=== PATIENT | male | born 2000 | race Caucasian/White ===

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

== ENCOUNTER 2022-02-04 18:14 | Emergency (ER) | payer OTHER, SELFPAY ==
[2022-02-04 18:20] VITALS: BP 124/85; PULSE 85; RESP 16; TEMP 37.2; O2SAT 99; BMI 23.6
[2022-02-04 18:52] LABS: UTC Influenza A Antigen Negative (Negative)
[2022-02-04 18:53] LABS: UTC Influenza B Antigen Negative (Negative)
[2022-02-04 19:00] LABS: Strep Scrn Group A (Rapid) Negative (Negative)
--- NOTE | 2022-02-04 19:10 | HMH.EDUTC ---
[facility] [place] Impression: Abdominal pain Qualifiers: Abdominal location: unspecified location Qualified Code(s): R10.9 - Unspecified abdominal pain Disposition: Still a Patient Condition on Discharge: Fair Referrals: Bhanu Matos MD [Primary Care Provider] - Time of Disposition: 19:54 Medical Decision Making - Medical Records Medical records reviewed: No: I reviewed the patient's medical records. - Herminio Inquiry Pt receiving controlled substance: No Vital Signs: 02/04/22 18:20 Temperature 98.9 F Temperature Source Oral Pulse Rate [Right] 85 Respiratory Rate 16 Blood Pressure [Right Arm] 124/85 Blood Pressure Mean [Right Arm] 98 Blood Pressure Source [Right Arm] Automatic Cuff Blood Pressure Position [Right Arm] Sitting 02 Sat by Pulse Oximetry 99 Oxygen Delivery Method Room Air - Lab Data Lab results reviewed: Yes: I reviewed the patient's lab results. Lab Results 02/04/22 18:40: Influenza Type A Ag Negative, Influenza Type B Ag Negative 02/04/22 18:41: Group A Strep Rapid Negative Orders (Tests/Meds): ORDERS Category Date Time Status Strep Screen Confirmation Stat Micro 02/04/22 18:41 Received Medical Decision Narrative: He was transferred to the ER due to his abdominal pain and right lower quadrant abdominal tenderness. [facility] [place] - General Stated complaint: vomiting, stomach pain, weakness Time Seen by Provider: 02/04/22 19:11 Mode of Arrival: Wheelchair Source of Information: Patient Limitations: No Limitations Description of Symptoms (Recalled from Triage Doc. by RN): pt advises this morning when he woke up he started vomiting and having some diarrhea, advises as the day went on he has gotten progressively worse and is having body aches and chills. - History of Present Illness Provider Complaint: He states that since around 0800 this am, he has had n/v. He is having right lower quadrant abdominal pain also. He still has his appendix. - Related Data Home Medications Medication Instructions Recorded Confirmed Ibuprofen [Ibuprofen 400mg 400 mg PO Q4HP PRN 12/08/18 12/08/18 Tablet] Previous Rx's Medication Instructions Recorded Ibuprofen [Motrin 600mg 600 mg PO Q8HP PRN #21 tab 12/08/18 Tablet] Minocycline HCl [Minocycline HCl 100 mg PO BID #20 tablet 12/08/18 100mg Tab*] Allergies Allergy/AdvReac Type Severity Reaction Status Date / Time amoxicillin [AMOXICILLIN] Allergy Unknown Verified 11/14/18 12:09 [facility] History - Hepatitis A Screen Attestation statement:: This patient has been screened for Hepatitis A risk factors. I have reviewed the patient's past medical history: Yes Medical History: Denies:: Cancer, Diabetes Mellitus Type 1, Diabetes Mellitus Type 2, MRSA Laterality Cases: Bilateral: Tonsillectomy Amputation: No Fractures: No - Social History Smoking Status: Never smoker Alcohol Intake: never Occupational Status: other Housing: house ROS Obtained: Yes All systems reviewed & no additional complaints - Constitutional Constitutional: Reports body ache, Reports chills, Reports fever(s), Reports poor appetite, Reports malaise - Eyes Eyes: Denies eye discharge - Gastrointestinal Gastrointestingal: Reports: as per HPI - Genitourinary Male Genitourinary: Denies difficulty urinating, Denies urinary frequency, Denies urinary hesitancy - Musculoskeletal Musculoskeletal: Denies back pain - Integumentary/Breasts Skin/Breast: Denies rash Physical Exam - General General appearance: alert, in no apparent distress - Head Head exam: atraumatic, normocephalic, normal inspection - Eye Eye exam: Present: normal appearance, PERRL, EOMI - ENT ENT exam: Present: normal exam, normal oropharynx, mucous membranes moist, TM's normal bilaterally, normal external ear exam - Neck Neck exam: Present: normal inspection, full ROM, trachea midline. Absent: meningismus, lymphadenopathy - Chest Chest
[2022-02-04 19:45] VITALS: BP 140/80; PULSE 100; RESP 18; TEMP 36.9; O2SAT 99; BMI 22.7
--- NOTE | 2022-02-04 20:02 | CT_ITS ---
PROCEDURE INFORMATION: Exam: CT Abdomen And Pelvis With Contrast Exam date and time: 02/04/2022 8:57 PM Age: 21 years old Clinical indication: Abdominal tenderness and vomiting; Additional info: Abd pain, rlq TECHNIQUE: Imaging protocol: Computed tomography of the abdomen and pelvis with contrast. Radiation optimization: All CT scans at this facility use at least one of these dose optimization techniques: automated exposure control; mA and/or kV adjustment per patient size (includes targeted exams where dose is matched to clinical indication); or iterative reconstruction. Contrast material: ISOVUE; Contrast volume: 75 ml; Contrast route: IV; COMPARISON: No relevant prior studies available. FINDINGS: Liver: Fatty infiltration. Gallbladder and bile ducts: No calcified stones. No ductal dilation. Pancreas: Unremarkable. No ductal dilation. Spleen: No splenomegaly. Adrenal glands: No mass. Kidneys and ureters: Unremarkable. No significant hydronephrosis. Stomach and bowel: Fluid within small bowel. Fluid/loose stool within RIGHT colon. Apparent mild mural/fold thickening of few loops of proximal small bowel. No associated inflammatory stranding. No obstruction. Appendix: Top-normal in size, up to 0.6 cm. No inflammation. Intraperitoneal space: No significant fluid collection. No definite free air. Arteries: Unremarkable. No abdominal aortic aneurysm. Lymph nodes: No pathologically enlarged lymph nodes. Urinary bladder: Unremarkable. Reproductive: Unremarkable as visualized. Bones/joints: No acute fracture. Soft tissues: Unremarkable. IMPRESSION: Possible mild enteritis. Clinical correlation is needed.
[2022-02-04 20:26] LABS: Basophils # 0.1 K/mm3 (0-0.2); Basophils % 0.3 % (0.1-2.0); Eosinophils # 0.1 K/mm3 (0.0-0.4); Eosinophils % 0.8 % (0.1-12.0); Hematocrit 54.7 % (42.0-52.0); Lymphocytes # 0.4 K/mm3 (0.7-4.5); Lymphocytes % 2.3 % (10-50); Mean Corpuscular HGB Conc 33.3 g/dL (31.8-35.4); Mean Corpuscular Hemoglobin 30.9 pg (27.0-31.2); Mean Corpuscular Volume 92.7 fl (80-94); Mean Platelet Volume 7.3 fl (7.4-10.4); Monocytes # 0.4 K/mm3 (0.1-1.0); Neutrophils # 16.2 K/mm3 (1.8-7.8); Neutrophils % 94.5 % (37.0-80.0); Platelet Count 337 K/mm3 (142-424); Red Cell Distribution Width 12.8 % (11.5-17.5); White Blood Count 17.1 K/mm3 (4.5-13.0)
[2022-02-04 20:28] LABS: MANUAL DIFFERENTIAL MANUAL DIFFERENTIAL (MANUAL DIFF)
[2022-02-04 20:35] LABS: Alanine Aminotransferase 33 U/L (12-78); Albumin Level 5.4 g/dl (3.5-5.0); Albumin/Globulin Ratio 1.7 (1.1-1.8); Alkaline Phosphatase 111 U/L (38-126); Amylase 119 U/L (30-110); Aspartate Amino Transferase 37 U/L (17-59); Bilirubin,Total 2.9 mg/dl (0.2-1.3); Blood Urea Nitrogen 15 mg/dl (9-20); Calcium 10.1 mg/dl (8.4-10.2); Carbon Dioxide 26 mmol/L (22.0-30.0); Chloride 101 mmol/L (98-107); Creatinine Clearance Estimated 123 mL/min (50-200); Estimated Glomerular Filt Rate 95 ml/min (>60); GFR (African American) 115 ML/MIN (>60); Globulin 3.1 g/dL (1.3-3.2); Glucose 96 mg/dl (74-100); Lipase 61 U/L (23-300); Sodium 142 mmol/L (136-145); Total Protein,Serum 8.5 g/dl (6.3-8.2)
[2022-02-04 20:41] LABS: Eosinophils % 1 % (0-3); Lymphocytes % 9 % (10-50); Monocytes % 2 % (2-9); Neutrophils % 87 % (42-76); Platelet Estimate Normal; RBC Morphology Normal; Total Cells Counted 100
--- NOTE | 2022-02-04 21:49 | HMH.EDGENADL ---
ED Disposition Clinical Impression: Nausea and vomiting Abdominal pain Qualifiers: Abdominal location: unspecified location Qualified Code(s): R10.9 - Unspecified abdominal pain Disposition: Home, Self-Care Condition on Discharge: Good Prescriptions: Ondansetron [Zofran 4mg ODT] 4 mg PO TIDP PRN #12 tab PRN Reason: nausea Transmission Status: Pending to [facility] Referrals: Bhanu Matos MD [Primary Care Provider] - - Critical Care Critical Care Time: No Attestation: On 02/04/22, the high probability of a clinically significant, sudden or life threatening deterioration of the following system(s) required my full and direct attention, intervention and personal management. The time I documented below is in addition to time spent performing reported procedures but includes the following listed in this critical care notation. Medical Decision Making - Herminio Inquiry Pt receiving controlled substance: No Vital Signs: 02/04/22 18:20 02/04/22 19:45 Temperature 98.9 F 98.5 F Temperature Source Oral Oral Pulse Rate [Right] 85 100 H Respiratory Rate 16 18 Blood Pressure [Right Arm] 124/85 140/80 Blood Pressure Mean [Right Arm] 98 100 Blood Pressure Source [Right Arm] Automatic Cuff Blood Pressure Position [Right Arm] Sitting 02 Sat by Pulse Oximetry 99 99 Oxygen Delivery Method Room Air - Lab Data Lab Results 02/04/22 18:40: Influenza Type A Ag Negative, Influenza Type B Ag Negative 02/04/22 18:41: Group A Strep Rapid Negative 02/04/22 20:19: WBC 17.1 H, RBC 5.90, Hgb 18.0, Hct 54.7 H, MCV 92.7, MCH 30.9, MCHC 33.3, RDW 12.8, Plt Count 337, MPV 7.3 L, Neut % (Auto) 94.5 H, Lymph % (Auto) 2.3 L, [place] % (Auto) 2.0, Eos % (Auto) 0.8, Baso % (Auto) 0.3, Neut # (Auto) 16.2 H, Lymph # (Auto) 0.4 L, [place] # (Auto) 0.4, Eos # (Auto) 0.1, Baso # (Auto) 0.1, Total Counted 100, Neutrophils % (Manual) 87 H, Band Neutrophils % 1.0, Lymphocytes % (Manual) 9 L, Monocytes % (Manual) 2, Eosinophils % (Manual) 1, Platelet Estimate Normal, RBC Morphology Normal 02/04/22 20:19: Sodium 142, Potassium 4.0, Chloride 101, Carbon Dioxide 26, Anion Gap 19.0 H, BUN 15, Creatinine 1.00, Estimated Creat Clear 123, Estimated GFR 95, Est GFR ( Amer) 115, Glucose 96, Calcium 10.1, Total Bilirubin 2.9 H, AST 37, ALT 33, Alkaline Phosphatase 111, Total Protein 8.5 H, Albumin 5.4 H, Globulin 3.1, Albumin/Globulin Ratio 1.7, Amylase 119 H, Lipase 61 Result diagrams: 02/04/22 20:19 02/04/22 20:19 Orders (Tests/Meds): ED MEDICATIONS Generic Name Dose Route Start Last Admin Trade Name Freq PRN Reason Stop Dose Admin Sodium Chloride 1,000 mls @ 999 mls/hr 02/04/22 20:15 02/04/22 20:09 Sod Chlor 0.9% 1000ml Bag IV 02/04/22 21:15 999 mls/hr .Q1H1M JUANITA Administration Discontinued Medications Generic Name Dose Route Start Last Admin Trade Name Freq PRN Reason Stop Dose Admin Ketorolac Tromethamine 30 mg 02/04/22 20:04 02/04/22 20:08 Ketorolac 30mg/Ml Vial IV 02/04/22 20:05 30 mg ONCE ONE Administration Ondansetron HCl 4 mg 02/04/22 20:04 02/04/22 20:09 Ondansetron 4mg/2ml Vial IV 02/04/22 20:05 4 mg ONCE ONE Administration ORDERS Category Date Time Status Urinalysis and Microscopic Stat Lab 02/04/22 20:02 Ordered Strep Screen Confirmation Stat Micro 02/04/22 18:41 Received Medical Decision Narrative: 21 yo male presents for 1 day of RLQ pain, nausea, vomiting without diarrhea. DDx includes but not limited to appendicitis, gastritis, pancreatitis, mesenteric adenitis. HDS, NAD, nonperitonitic exam. Labs with noted AG 19, wbc 17k, glucose wnl, lipase wnl. Pain improved and controlled in ED. Tolerating PO. Given [address] a/p with possible enteritis, no appendicitis. Remains well appearing, HDS, pain controlled, tolerating po. given strict ed return precautions. General Adult HPI - General Stated complaint: vomiting, stomach pain, weakness
[2022-02-04 22:03] VITALS: BP 135/68; PULSE 87; RESP 16; TEMP 36.6; O2SAT 98
== END 2022-02-04 22:07 | disposition home or self-care (01) ==
LOC: ER 18:19 → UTC 18:22 → ER 19:51
PROVIDERS: Nurse Practitioner Family; Emergency Provider Student in an Organized Health Care Education/Training Program; PCP Family Medicine
DX: R10.32 Left lower quadrant pain (principal); E53.1 Pyridoxine deficiency; R11.2 Nausea with vomiting, unspecified; M79.10 Myalgia, unspecified site; Z88.0 Allergy status to penicillin; Z88.1 Allergy status to other antibiotic agents; Z88.3 Allergy status to other anti-infective agents
CPT/HCPCS: 74177; 80053; 82150; 83690; 85007; 85025; 87430; 87804; 96361; 96365; 96374; 96375; 99285; J2405; Q9967

== ENCOUNTER 2022-05-26 14:33 | Emergency (ER) | payer OTHER, SELFPAY ==
[2022-05-26 15:10] VITALS: BP 130/85; PULSE 115; RESP 18; TEMP 36.7; O2SAT 95; BMI 22.8
--- NOTE | 2022-05-26 15:13 | XR_ITS ---
PROCEDURE INFORMATION: Exam: XR Chest Exam date and time: 05/26/2022 3:11 PM Age: 21 years old Clinical indication: Cough TECHNIQUE: Imaging protocol: Radiologic exam of the chest. Views: 2 views. COMPARISON: CR XR CHEST 2V 04/24/2020 3:56 PM FINDINGS: Lungs: Unremarkable. No consolidation. Pleural spaces: Unremarkable. No pleural effusion. No pneumothorax. Heart/Mediastinum: Unremarkable. No cardiomegaly. Bones/joints: Unremarkable. IMPRESSION: No acute cardiopulmonary process is identified.
--- NOTE | 2022-05-26 15:24 | HMH.EDUTC ---
[facility] [place] Impression: Viral syndrome, Exposure to COVID-19 virus, Bronchitis Disposition: Home, Self-Care Condition on Discharge: Good Instructions: DI for Acute Bronchitis, DI for COVID-19 (Suspected or Confirmed ), Preventing the Spread of Coronavirus Discharge Instructions Additional Instructions: Drink plenty of fluids. Take tylenol or ibuprofen for pain or fever. Take the medications as directed. Follow up with your regular doctor. GO TO THE ER FOR ANY WORSENING SYMPTOMS Quarantine until you know the results of your covid-19 test. Notify your school or workplace of your results and follow their instructions regarding return to work/school. Don't start the oral steroids until tomorrow, since you had the shot here today. Prescriptions: Albuterol Sulfate [Albuterol Sulfate Hfa] 2 puffs IH Q6HP PRN 30 Days #1 each PRN Reason: Shortness Of Breath Transmission Status: Received by [id number] Brompheniramine/Pseudoephed/Dm [Bromfed Dm Cough Syrup] 5 ml PO Q6HP PRN #240 ml PRN Reason: Cough Transmission Status: Received by [id number] methylPREDNISolone [Medrol] 4 mg PO DIRECTED 6 Days #21 packet Transmission Status: Received by [facility] Azithromycin [Z-Ike 250mg Tab*] 250 mg PO UD DOSE PK #6 tab Transmission Status: Received by [id number] Referrals: Bhanu Matos MD [Primary Care Provider] - Forms: Work/School Release Time of Disposition: 15:46 Medical Decision Making - Medical Records Medical records reviewed: No: I reviewed the patient's medical records. - Herminio Inquiry Pt receiving controlled substance: No Vital Signs: 05/26/22 15:10 05/26/22 15:41 05/26/22 15:54 Temperature 98.1 F 98.1 F Temperature Source Oral Pulse Rate 131 H 131 H Pulse Rate [Left] 115 H Respiratory Rate 18 18 Blood Pressure 130/85 Blood Pressure [Right Arm] 130/85 Blood Pressure Mean [Right Arm] 100 02 Sat by Pulse Oximetry 95 97 Oxygen Delivery Method Room Air Orders (Tests/Meds): ED MEDICATIONS Discontinued Medications Generic Name Dose Route Start Last Admin Trade Name Freq PRN Reason Stop Dose Admin Albuterol/Ipratropium 3 ml 05/26/22 15:27 05/26/22 15:40 Ipratropium/Albuterol 3 Ml Neb IH 05/26/22 15:28 3 ml ONCE ONE Administration Methylprednisolone Sodium Succinate 125 mg 05/26/22 15:51 05/26/22 15:49 Methylprednisolone Sod Succ 125mg Vial IM 05/26/22 15:52 125 mg ONCE ONE Administration [facility] [place] - General Stated complaint: soa, congestion Time Seen by Provider: 05/26/22 15:24 Mode of Arrival: Ambulatory Source of Information: Patient Limitations: No Limitations Description of Symptoms (Recalled from Triage Doc. by RN): patient comes in with complaints of severe cough, nausea, faitgue. patient states he has had no sick contacts that he is aware of. HEENT Symptoms (Recalled from RN notes): No Resp Symptoms (Recalled from RN notes): Yes Skin Symptoms (Recalled from RN notes): No MS Symptoms (Recalled from RN notes): No Functional Status (Recalled from RN notes): n/a - History of Present Illness Provider Complaint: He states that for the past 2 days he has had a cough, chest congestion, body aches, and low grade fever. - Related Data Previous Rx's Medication Instructions Recorded Ondansetron [Zofran 4mg ODT] 4 mg PO TIDP PRN #12 tab 02/04/22 Albuterol Sulfate [Albuterol 2 puffs IH Q6HP PRN 30 Days #1 each 05/26/22 Sulfate Hfa] Azithromycin [Z-Ike 250mg Tab*] 250 mg PO UD DOSE PK #6 tab 05/26/22 Brompheniramine/Pseudoephed/Dm 5 ml PO Q6HP PRN #240 ml 05/26/22 [Bromfed Dm Cough Syrup] methylPREDNISolone [Medrol] 4 mg PO DIRECTED 6 Days #21 05/26/22 packet Allergies Allergy/AdvReac Type Severity Reaction Status Date / Time amoxicillin [AMOXICILLIN] Allergy Unknown Verified 05/26/22 15:13 - Worker's Comp Is this a Worker's Comp case?:
[2022-05-26 15:41] VITALS: PULSE 115; PULSE 131; O2SAT 97
[2022-05-26 15:54] VITALS: BP 130/85; PULSE 131; RESP 18; TEMP 36.7
== END 2022-05-26 16:15 | disposition home or self-care (01) ==
PROVIDERS: Emergency Provider Nurse Practitioner Family; PCP Family Medicine
DX: U07.1 COVID-19 (principal); J40 Bronchitis, not specified as acute or chronic
CPT/HCPCS: 71046; 96372; 99212; C9803; G0463; U0003; U0005

== ENCOUNTER 2022-08-28 10:27 | Emergency (ER) | payer OTHER, SELFPAY ==
--- NOTE | 2022-08-28 10:28 | ECG_ITS ---
APPROVED REPORT Exam: Resting ECG HR:112 bpm ECG Measurements Heart Rate 112 AXES [place] 143 P 81 QRSd 69 QRS 25 QT 297 T 87 QTc 363 Conclusion SINUS TACHYCARDIA POSSIBLE LEFT ATRIAL ENLARGEMENT [-0.1mV P-WAVE IN V1/V2] NONSPECIFIC T-WAVE ABNORMALITY ABNORMAL RHYTHM ECG UNCONFIRMED REPORT Electronically signed by : Bhanu Leo MD 08/28/2022 21:06:32
[2022-08-28 10:29] VITALS: BP 137/98; PULSE 118; RESP 20; TEMP 36.7; O2SAT 97; BMI 20.3
[2022-08-28 10:41] VITALS: BMI 20.3
--- NOTE | 2022-08-28 10:42 | PC.NURSE ---
ROUNDED ON PT, REPORTS FEELING BETTER. BREATHING EASIER. CALL LIGHT WITHIN REACH
--- NOTE | 2022-08-28 10:55 | XR_ITS ---
FINAL REPORT CLINICAL HISTORY: SHORTNESS OF BREATH COMPARISON: 05/26/2022 FINDINGS: TWO-VIEW CHEST The heart size is normal. The mediastinum is normal. The lungs are clear. There is no pneumothorax. IMPRESSION: No acute cardiopulmonary process. Reviewed, Interpreted and Dictated by Jude Desai III, MD Transcribed by Barbara Willis Authenticated and [facility]
[2022-08-28 11:01] VITALS: BP 136/80; PULSE 64; O2SAT 81
--- NOTE | 2022-08-28 11:02 | PC.NURSE ---
Barbara Brown rounded on pts room
--- NOTE | 2022-08-28 11:02 | PC.NURSE ---
PT TO XR AT THIS TIME
[2022-08-28 11:04] LABS: Basophils # 0.1 K/mm3 (0-0.2); Basophils % 1.6 % (0.1-2.0); Eosinophils # 0.4 K/mm3 (0.0-0.4); Hematocrit 47.5 % (42.0-52.0); Hemoglobin 16.7 g/dL (14.1-18.0); Lymphocytes # 2.5 K/mm3 (0.7-4.5); Lymphocytes % 36.6 % (10-50); Mean Corpuscular HGB Conc 35.1 g/dL (31.8-35.4); Mean Corpuscular Hemoglobin 30.3 pg (27.0-31.2); Mean Corpuscular Volume 86.3 fl (80-94); Mean Platelet Volume 7.4 fl (7.4-10.4); Monocytes # 0.3 K/mm3 (0.1-1.0); Monocytes % 5.1 % (1.7-9.3); Neutrophils # 3.4 K/mm3 (1.8-7.8); Neutrophils % 50.8 % (37.0-80.0); Platelet Count 365 K/mm3 (142-424); Red Cell Distribution Width 12.5 % (11.5-17.5); White Blood Count 6.7 K/mm3 (4.5-13.0)
[2022-08-28 11:07] LABS: Anion Gap 17.2 mEq/L (5-15); Blood Urea Nitrogen 13 mg/dl (9-20); Calcium 9.4 mg/dl (8.4-10.2); Carbon Dioxide 26 mmol/L (22.0-30.0); Chloride 103 mmol/L (98-107); Creatinine Clearance Estimated 110 mL/min (50-200); Estimated Glomerular Filt Rate 95 ml/min (>60); GFR (African American) 115 ML/MIN (>60); Glucose 88 mg/dl (74-100); Potassium 4.2 mmoL/L (3.5-5.1); Sodium 142 mmol/L (136-145)
[2022-08-28 11:19] LABS: Troponin I < 0.01 ng/ml (0.00-0.034)
[2022-08-28 11:30] VITALS: BP 120/82; PULSE 86; O2SAT 97
--- NOTE | 2022-08-28 12:30 | PC.NURSE ---
REPEAT TROP DRAWN AND SENT TO LAB
--- NOTE | 2022-08-28 12:55 | PC.NURSE ---
ROUNDED ON PT AT THIS TIME, UPDATED ON POC. FAMILY AT BEDSIDE. NO NEEDS AT THIS TIME
--- NOTE | 2022-08-28 13:48 | HMH.EDGENADL ---
Discharge Plan Disposition Patient Disposition: Home, Self-Care Condition: Good Prescriptions Prescriptions: No Action ondansetron 4 MG tablet,disintegrating 4 mg PO TIDP PRN (Reason: nausea) Qty: 12 0RF methylprednisolone 4 MG tablets,dose pack 4 mg PO DIRECTED 6 Days Qty: 21 0RF rdbtbugopqgjacl-vvnplbxmm-ZH 118 ML syrup 5 ml PO Q6HP PRN (Reason: Cough) Qty: 240 0RF azithromycin 250 MG tablet 250 mg PO UD DOSE PK Qty: 6 0RF Rx Instructions: Take two (2) tablets today, then one (1) tablet days #2 thru #5 albuterol sulfate 8.5 GM HFA aerosol inhaler 2 puffs IH Q6HP PRN (Reason: Shortness Of Breath) 30 Days Qty: 1 5RF Referrals Follow up/Referrals: Josiah Hassan MD [Primary Care Provider] - See instructions Activity Restrictions/Add. Instructions Additional Instructions/Restrictions: Additional instructions for CHEST PAIN: See your physician as soon as possible for further evaluation. Return immediately if worsening chest pain, vomiting, shortness of breath, fever, coughing of blood. Clinical Impressions Clinical Impression: Atypical chest pain Instructions Patient Instructions: DI for Atypical Chest Pain Discharge ED Provider: Julio Fleming General Adult HPI General Chief complaint: Shortness of Breath/Dyspnea Stated complaint: chest pain Time Seen by Provider: 08/28/22 13:47 Mode of Arrival: Ambulatory Limitations: No Limitations Description of Symptoms (Recalled from ER Triage Doc. by RN): PT REPORTS INCREASED SHORTNESS OF BREATH AFTER SHOWERING THIS AM. HAS HAD INTERMITTENTLY. REPORTS PAIN IN CENTER OF CHEST, WORSE WITH TAKING A DEEP BREATH History of Present Illness HPI narrative: Patient states that starting this morning he began having shortness of breath. He has a pain in his lower left parasternal area that worsens with deep breath. He feels anxious. No vomiting or diaphoresis. States that he has had the symptoms intermittently for several months. No cough, hemoptysis, leg pain or swelling. No recent hospitalizations or surgeries. His only recent travel was a trip to [place] by car, 1-1/2-[address] drive. He has an asthma inhaler that he used once earlier this morning, but then it ran out. He is a former smoker, states he quit about 2 weeks ago. He uses nicotine pouches. Related Data Previous Rx's Medication Instructions Recorded ondansetron 4 mg disintegrating 4 mg PO TIDP PRN nausea #12 tabs 02/04/22 tablet albuterol sulfate 90 mcg/actuation 2 puffs inhalation Q6HP PRN 05/26/22 aerosol inhaler Shortness Of Breath 30 days #1 ea azithromycin 250 mg tablet 250 mg PO UD DOSE PK #6 tabs 05/26/22 kxbinvwrelshnyb-iwkjixszcjuvqbq-ZS 5 ml PO Q6HP PRN Cough #240 mL 05/26/22 2 mg-30 mg-10 mg/5 mL oral syrup methylprednisolone 4 mg tablets in 4 mg PO DIRECTED 6 days #21 05/26/22 a dose pack packets Allergies Allergy/AdvReac Type Severity Reaction Status Date / Time amoxicillin [AMOXICILLIN] Allergy Unknown Verified 05/26/22 15:13 PFSH PFSH Social History Smoking Status: Former smoker alcohol intake: never current occupational status: other Travel in the last 8 weeks: None housing: house ROS Obtained: Yes Systems reviewed as appropriate & no additional complaints except as documented Constitutional Constitutional: Denies fever(s), Denies headache(s) and Denies weakness ENT Ears, Nose, Mouth, and Throat: Denies headache(s), Denies nasal discharge and Denies sore throat Cardiovascular Cardiovascular: Reports chest pain and Denies edema Respiratory Respiratory: Reports shortness of breath, Denies cough and Denies hemoptysis Gastrointestinal Gastrointestingal: Denies abdominal pain, constipation, diarrhea or vomiting Genitourinary Male Genitourinary: Denies difficulty urinating and Denies flank pain Musculoskeletal Musculoskeletal: Denies numbness Neurologic Neurologic: Denies headache(s), Denies numbness and Denies weakness Physi
--- NOTE | 2022-08-28 13:51 | PC.NURSE ---
ED MD AT BEDSIDE FOR EVALUATION
[2022-08-28 14:22] LABS: Troponin I < 0.01 ng/ml (0.00-0.034)
--- NOTE | 2022-08-28 14:38 | PC.NURSE ---
ED MD AT BEDSIDE TO DISCUSS POC AND DISCHARGE
[2022-08-28 14:50] VITALS: BP 128/69; PULSE 80; RESP 17; TEMP 36.8; O2SAT 99
== END 2022-08-28 14:53 | disposition home or self-care (01) ==
PROVIDERS: Emergency Provider Emergency Medicine; PCP Emergency Medicine
DX: R07.89 Other chest pain (principal)
CPT/HCPCS: 71046; 80048; 84484; 85025; 85378; 93005; 96374; 99284; J2405

== ENCOUNTER → 2023-01-03 08:23 | Outpatient (CLI) | payer OTHER, SELFPAY ==
[2023-01-03 09:03] LABS: Basophils # 0.1 K/mm3 (0-0.2); Basophils % 0.7 % (0.1-2.0); Eosinophils # 0.4 K/mm3 (0.0-0.4); Eosinophils % 5.9 % (0.1-12.0); Hematocrit 47.9 % (42.0-52.0); Hemoglobin 16.6 g/dL (14.1-18.0); Lymphocytes # 2.6 K/mm3 (0.7-4.5); Lymphocytes % 38.9 % (10-50); Mean Corpuscular HGB Conc 34.8 g/dL (31.8-35.4); Mean Corpuscular Hemoglobin 30.8 pg (27.0-31.2); Mean Corpuscular Volume 88.7 fl (80-94); Mean Platelet Volume 7.1 fl (7.4-10.4); Monocytes # 0.3 K/mm3 (0.1-1.0); Monocytes % 4.3 % (1.7-9.3); Neutrophils # 3.4 K/mm3 (1.8-7.8); Neutrophils % 50.4 % (37.0-80.0); Platelet Count 305 K/mm3 (142-424); Red Cell Distribution Width 12.7 % (11.5-17.5); White Blood Count 6.8 K/mm3 (4.8-10.8)
[2023-01-03 09:45] LABS: Alanine Aminotransferase 16 U/L (12-78); Albumin/Globulin Ratio 2.4 (1.1-1.8); Alkaline Phosphatase 73 U/L (38-126); Anion Gap 12.2 mEq/L (5-15); Aspartate Amino Transferase 22 U/L (17-59); Bilirubin,Total 2.2 mg/dl (0.2-1.3); Blood Urea Nitrogen 13 mg/dl (9-20); Calcium 9.4 mg/dl (8.4-10.2); Carbon Dioxide 26 mmol/L (22.0-30.0); Chloride 104 mmol/L (98-107); Chol/HDL Ratio 2.3 (1-3.5); Cholesterol 102 mg/dl (140-200); Estimated Glomerular Filt Rate 94 ml/min (>60); GFR (African American) 114 ML/MIN (>60); Globulin 2.1 g/dL (1.3-3.2); Glucose 80 mg/dl (74-100); HDL Cholesterol 44 mg/dl (40-60); Potassium 4.2 mmoL/L (3.5-5.1); Sodium 138 mmol/L (136-145); Total Protein,Serum 7.1 g/dl (6.3-8.2); Triglycerides 81 mg/dl (30-150); VLDL Cholesterol 16 mg/dL (0-40)
[2023-01-03 09:57] LABS: Direct LDL Cholesterol 43.67 mg/dL (100-129)
[2023-01-03 10:01] LABS: T4 (Thyroxine) 8.4 ug/dl (5.53-11.0)
[2023-01-03 10:15] LABS: Thyroid Stimulating Hormone 3.46 uIU/mL (0.465-4.68)
[2023-01-03 12:48] LABS: Hemoglobin A1C 4.8 % (4.0-6.0)
== END ==
PROVIDERS: PCP Family Medicine; Visit Provider Nurse Practitioner Family
DX: F33.2 Major depressive disorder, recurrent severe without psychotic features (principal)
CPT/HCPCS: 80053; 80061; 83036; 84436; 84443; 85025

== ENCOUNTER 2023-05-04 07:23 | Emergency (ER) | payer OTHER, SELFPAY ==
[2023-05-04 07:24] VITALS: BP 145/77; PULSE 88; RESP 17; TEMP 36.8; O2SAT 95; BMI 22.6
[2023-05-04 07:30] VITALS: BP 142/67; PULSE 96; O2SAT 95
--- NOTE | 2023-05-04 07:36 | XR_ITS ---
PROCEDURE INFORMATION: Exam: XR Chest Exam date and time: 05/04/2023 7:40 AM Age: 22 years old Clinical indication: Cough and shortness of breath; Patient HX: PT states he had a fever getting off work last night w chronic cough and lt sided cp & SOA. HX asthma. PT states he gets metallic taste in his mouth when he coughs. Former smoker TECHNIQUE: Imaging protocol: Radiologic exam of the chest. Views: 2 views. COMPARISON: CR XR CHEST 2V 08/28/2022 10:54 AM FINDINGS: Lungs: Unremarkable. No consolidation. Pleural spaces: Unremarkable. No pleural effusion. No pneumothorax. Heart/Mediastinum: Unremarkable. No cardiomegaly. Bones/joints: Unremarkable. IMPRESSION: No acute findings.
[2023-05-04 07:40] LABS: Coronavirus 19, PCR Not Detected (NotDetected); Influenza A, PCR Not Detected (NotDetected); Influenza B, PCR Not Detected (NotDetected)
--- NOTE | 2023-05-04 07:44 | PC.NURSE ---
ROUNDED ON PT, UPDATED ON POC. NO NEEDS AT THIS TIME
--- NOTE | 2023-05-04 07:49 | PC.NURSE ---
0749 PT TO XR
[2023-05-04 08:00] VITALS: BP 135/91; PULSE 93; O2SAT 98
--- NOTE | 2023-05-04 08:16 | PC.NURSE ---
Dr. Irby at [facility] for pt eval
--- NOTE | 2023-05-04 08:25 | HMH.EDGENADL ---
Discharge Plan Disposition Patient Disposition: Home, Self-Care Condition: Good Prescriptions Prescriptions: New prednisone 20 mg tablet 40 mg PO BID 5 Days Qty: 20 0RF No Action ondansetron 4 MG tablet,disintegrating 4 mg PO TIDP PRN (Reason: nausea) Qty: 12 0RF methylprednisolone 4 MG tablets,dose pack 4 mg PO DIRECTED 6 Days Qty: 21 0RF odndprsnlycpqrx-woenqahge-FL 118 ML syrup 5 ml PO Q6HP PRN (Reason: Cough) Qty: 240 0RF azithromycin 250 MG tablet 250 mg PO UD DOSE PK Qty: 6 0RF Rx Instructions: Take two (2) tablets today, then one (1) tablet days #2 thru #5 albuterol sulfate 8.5 GM HFA aerosol inhaler 2 puffs IH Q6HP PRN (Reason: Shortness Of Breath) 30 Days Qty: 1 5RF Referrals Follow up/Referrals: Josiah Hassan MD [Primary Care Provider] - See instructions Activity Restrictions/Add. Instructions Additional Instructions/Restrictions: Take prednisone daily for 5 days with food and water to prevent GI upset and kidney damage. Take daily Zyrtec to help with drainage. Mucinex can help with secretions and break up cough to allow you to expectorate phlegm more efficiently. Take Tylenol 1000 mg every 6 hours (4 times daily) and ibuprofen 400 mg every 6 hours (4 times daily) as needed with food and water to prevent GI upset and kidney damage. If you have any worsening symptoms as discussed, return to the ER for further evaluation. Clinical Impressions Clinical Impression: Mild asthma exacerbation, Bronchitis Discharge ED Provider: Ishan Irby General Adult HPI General Chief complaint: Upper Respiratory Infection Stated complaint: SOA, chest congestion, cough, drainage, fever Time Seen by Provider: 05/04/23 08:04 Mode of Arrival: Ambulatory Source of Information: Patient Limitations: No Limitations Description of Symptoms (Recalled from ER Triage Doc. by RN): PT REPORTS COUGH, CHEST CONGESTION, FEVER AND CHILLS THAT STARTED YESTERDAY History of Present Illness HPI narrative: Is a 22-year-old male with history of mild intermittent asthma presenting with cough, congestion, fevers, myalgias. Patient states 1 day prior to arrival, he had onset of symptoms. They have not gotten any better and have seem to get worse. He has cough productive of yellow sputum and intermittently a small flecks of dark red blood. Has also been having diarrhea. Patient denies chest pain, nausea or vomiting, rash, came to the ED today because he felt he was having difficulty breathing refractory to albuterol at home. Related Data Previous Rx's Medication Instructions Recorded ondansetron 4 mg disintegrating 4 mg PO TIDP PRN nausea #12 tabs 02/04/22 tablet albuterol sulfate 90 mcg/actuation 2 puffs inhalation Q6HP PRN 05/26/22 aerosol inhaler Shortness Of Breath 30 days #1 ea azithromycin 250 mg tablet 250 mg PO UD DOSE PK #6 tabs 05/26/22 dgctoxgyditfcip-xwulcwkxdysqvri-BB 5 ml PO Q6HP PRN Cough #240 mL 05/26/22 2 mg-30 mg-10 mg/5 mL oral syrup methylprednisolone 4 mg tablets in 4 mg PO DIRECTED 6 days #21 05/26/22 a dose pack packets prednisone 20 mg tablet 40 mg PO BID 5 days #20 tabs 05/04/23 Allergies Allergy/AdvReac Type Severity Reaction Status Date / Time amoxicillin [AMOXICILLIN] Allergy Unknown Verified 05/26/22 15:13 [facility] Disclaimer: The information contained in this section may have been updated after the patient was seen, as this information can be updated by other users. Medical History (Updated 05/04/23 @ 08:31 by Ishan Irby MD) Anxiety and depression Asthma Family History (Updated 05/04/23 @ 07:32 by Alecia Ohara RN) Other No significant family history Social History (Updated 05/04/23 @ 07:32 by Alecia Ohara RN) Smoking Status: Never smoker alcohol intake: never current occupational status: employed Travel in the last 8 weeks: None housing: house ROS Obtained: Yes All systems reviewed & no additional co
[2023-05-04 08:45] VITALS: BP 135/91; PULSE 95; RESP 18; TEMP 36.8; O2SAT 95
== END 2023-05-04 08:45 | disposition home or self-care (01) ==
PROVIDERS: Emergency Provider Emergency Medicine; PCP Emergency Medicine
DX: J45.21 Mild intermittent asthma with (acute) exacerbation (principal); J40 Bronchitis, not specified as acute or chronic; R06.02 Shortness of breath; F41.9 Anxiety disorder, unspecified; F32.A Depression, unspecified
CPT/HCPCS: 71046; 87636; 99283; 99284

== ENCOUNTER 2023-07-04 10:10 | Emergency (ER) | payer OTHER, SELFPAY ==
[2023-07-04 10:20] VITALS: BP 122/83; PULSE 85; RESP 22; TEMP 36.8; O2SAT 97; BMI 22.4
--- NOTE | 2023-07-04 10:36 | EXP.UTC ---
Discharge Plan Disposition Patient Disposition: Home, Self-Care Condition: Good Prescriptions Prescriptions: New clindamycin HCl 300 mg capsule 300 mg PO Q8H 10 Days Qty: 30 0RF No Action escitalopram oxalate 10 mg tablet 15 mg PO DAILY Referrals Follow up/Referrals: Morelia Cifuentes MD [Primary Care Provider] - See instructions Activity Restrictions/Add. Instructions Additional Instructions/Restrictions: Use dental balls as you was directed in the [facility] Follow up with Dentist as scheduled Take antibiotics as prescribed Return if needed Straight to ER if any life threatening symptoms Clinical Impressions Clinical Impression: Abscess, dental Instructions Patient Instructions: Tooth Abscess, Clindamycin Discharge ED Provider: Rhonda Dangelo Tc [facility] HPI General Stated complaint: possible abscess under tooth, pain Mode of Arrival: Ambulatory Source of Information: Patient Limitations: No Limitations Time Seen by Provider: 07/04/23 10:36 Description of Symptoms (Recalled from Triage Doc. by RN): PATIENT C/O PAIN TO BOTTOM LEFT TOOTH AND SWELLING TO LEFT JAW THAT STARTED YESTERDAY HEENT Symptoms (Recalled from RN notes): Yes Resp Symptoms (Recalled from RN notes): No Skin Symptoms (Recalled from RN notes): No MS Symptoms (Recalled from RN notes): No Functional Status (Recalled from RN notes): WNL History of Present Illness Provider Complaint: Patient states that he has an appointment in a couple of weeks with dentist States that he has a broken tooth on left bottom jaw State that yesterday he started having pain and swelling and thinks it may be getting abscessed Related Data Home Medications Medication Instructions Recorded Confirmed escitalopram oxalate 10 mg tablet 15 mg PO DAILY . 07/04/23 07/04/23 Previous Rx's Medication Instructions Recorded clindamycin HCl 300 mg capsule 300 mg PO Q8H 10 days #30 caps 07/04/23 Allergies Allergy/AdvReac Type Severity Reaction Status Date / Time amoxicillin [AMOXICILLIN] Allergy Unknown Verified 05/26/22 15:13 Worker's Comp Is this a Worker's Comp case?: No [facility] Disclaimer: The information contained in this section may have been updated after the patient was seen, as this information can be updated by other users. Medical History (Updated 07/04/23 @ 10:41 by Rhonda Dangelo APRN) Anxiety and depression Asthma Family History (Updated 05/04/23 @ 07:32 by Alecia Ohara RN) Other No significant family history Social History (Updated 05/04/23 @ 07:32 by Alecia Ohara RN) Smoking Status: Never smoker alcohol intake: never current occupational status: employed Travel in the last 8 weeks: None housing: house ROS Obtained: Yes All systems reviewed & no additional complaints except as documented and Yes Systems reviewed as appropriate & no additional complaints except as documented Constitutional Constitutional: Reports system reviewed and no additional complaints, except as documented and Reports as per HPI ENT Ears, Nose, Mouth, and Throat: Reports system reviewed and no additional complaints, except as documented, Reports as per HPI and Reports dental pain Cardiovascular Cardiovascular: Reports system reviewed and no additional complaints, except as documented and Reports as per HPI Respiratory Respiratory: Reports system reviewed and no additional complaints, except as documented and Reports as per HPI Physical Exam General General appearance: alert and in no apparent distress Expanded ENT Exam Teeth exam: Present dental caries, fractured tooth #, gingival swelling and other (swelling in left jaw area) Respiratory Respiratory exam: Present normal lung sounds bilaterally; Absent respiratory distress or wheezes Cardiovascular Cardiovascular exam: Present regular rate, normal rhythm and normal heart sounds Neurological Exam Neurological exam: Present alert, oriented X3 and normal gait Medical Decision Making Ka
[2023-07-04 10:42] VITALS: BP 122/83; PULSE 85; RESP 22; TEMP 36.8; O2SAT 97
== END 2023-07-04 10:44 | disposition home or self-care (01) ==
PROVIDERS: Emergency Provider Nurse Practitioner; PCP Family Medicine
DX: K04.7 Periapical abscess without sinus (principal); J45.909 Unspecified asthma, uncomplicated; F41.9 Anxiety disorder, unspecified; F32.A Depression, unspecified
CPT/HCPCS: 99212; 99214; G0463

== ENCOUNTER 2023-10-28 11:19 | Emergency (ER) | payer OTHER, SELFPAY ==
[2023-10-28 12:55] VITALS: BP 135/104; PULSE 95; RESP 18; TEMP 36.8; O2SAT 95; BMI 25.3
--- NOTE | 2023-10-28 13:14 | ED_ITS ---
Discharge Plan Disposition Patient Disposition: Home, Self-Care Condition: Good Prescriptions Prescriptions: New clindamycin HCl 300 mg capsule 300 mg PO Q8H 10 Days Qty: 30 0RF No Action escitalopram oxalate 10 mg tablet 15 mg PO DAILY clindamycin HCl 300 mg capsule 300 mg PO Q8H 10 Days Qty: 30 0RF Referrals Follow up/Referrals: Provider,Referral, [Primary Care Provider] - See instructions Activity Restrictions/Add. Instructions Additional Instructions/Restrictions: Use Dental balls as directed for pain Take antibiotics as prescribed Follow up with Dentist as scheduled Over the counter Motrin and/or Tylenol if you can take it as directed on package for pain Clinical Impressions Clinical Impression: Abscess, dental Instructions Patient Instructions: Tooth Abscess, Clindamycin Discharge ED Provider: Rhonda Dangelo [facility] General Stated complaint: Swelling and pain in left side of jaw Mode of Arrival: Ambulatory Source of Information: Patient Limitations: No Limitations Time Seen by Provider: 10/28/23 13:14 Description of Symptoms (Recalled from Triage Doc. by RN): PATIENT C/O ABSCESS TO LEFT BOTTOM TOOTH WITH SWOLLEN JAW SINCE SATURDAY HEENT Symptoms (Recalled from RN notes): Yes Resp Symptoms (Recalled from RN notes): No Skin Symptoms (Recalled from RN notes): No MS Symptoms (Recalled from RN notes): No Functional Status (Recalled from RN notes): WNL History of Present Illness Provider Complaint: Patient states that he had a dental abcess a month or so ago and was on antibiotics States that right before his appointment he got the flu and they canceled it States that he started with swelling in his left lower jaw again last week that has continued to get worse so today he came in today to see if he could get some antibiotics to help until he sees the dentist on the Related Data Home Medications Medication Instructions Recorded Confirmed escitalopram oxalate 10 mg tablet 15 mg PO DAILY . 07/04/23 07/04/23 Previous Rx's Medication Instructions Recorded clindamycin HCl 300 mg capsule 300 mg PO Q8H 10 days #30 caps 07/04/23 clindamycin HCl 300 mg capsule 300 mg PO Q8H 10 days #30 caps 10/28/23 Allergies Allergy/AdvReac Type Severity Reaction Status Date / Time amoxicillin [AMOXICILLIN] Allergy Unknown Verified 05/26/22 15:13 Worker's Comp Is this a Worker's Comp case?: No PFSH PFSH Disclaimer: The information contained in this section may have been updated after the patient was seen, as this information can be updated by other users. Medical History (Updated 10/28/23 @ 13:24 by Rhonda Dangelo APRN) Anxiety and depression Asthma Family History (Updated 05/04/23 @ 07:32 by Alecia Ohara RN) Other No significant family history Social History (Updated 05/04/23 @ 07:32 by Alecia Ohara RN) Smoking Status: Never smoker alcohol intake: never current occupational status: employed Travel in the last 8 weeks: None housing: house ROS Obtained: Yes All systems reviewed & no additional complaints except as documented and Yes Systems reviewed as appropriate & no additional complaints except as documented Constitutional Constitutional: Reports system reviewed and no additional complaints, except as documented and Reports as per HPI ENT Ears, Nose, Mouth, and Throat: Reports system reviewed and no additional complaints, except as documented, Reports as per HPI and Reports dental pain (left lower jaw area) Cardiovascular Cardiovascular: Reports system reviewed and no additional complaints, except as documented and Reports as per HPI Respiratory Respiratory: Reports system reviewed and no additional complaints, except as documented and Reports as per HPI Gastrointestinal Gastrointestingal: Reports system reviewed and no additional complaints, except as documented and as per HPI Physical Exam General General appearance: alert and in no apparent distress Expanded ENT Exam Teeth exam: Present fractured tooth #, gingival swelling and other (swelling in left lower jaw appears like abscess) Chest Chest inspection: Present normal inspection and symmetric chest wall rise Respiratory Respiratory exam: Present normal lung sounds bilaterally; Absent respiratory distress or wheezes Cardiovascular Cardiovascular exam: Present regular rate, normal rhythm and normal heart sounds Abdominal Exam Abdominal exam: Present soft and normal bowel sounds; Absent distention or tenderness Neurological Exam Neurological exam: Present alert, oriented X3 and normal gait Medical Decision Making Herminio Inquiry Pt receiving controlled substance: No Herminio was queried for this patient: No Vital Signs: 10/28/23 12:55 Temperature 98.2 F Temperature Source Oral Pulse Rate [Right Brachial] 95 H Respiratory Rate 18 Blood Pressure [Right Arm] 135/104 H Blood Pressure Mean [Right Arm] 114 Blood Pressure Source [Right Arm] Automatic Cuff Blood Pressure Position [Right Arm] Sitting 02 Sat by Pulse Oximetry 95 Oxygen Delivery Method Room Air
[2023-10-28 13:25] VITALS: BP 135/104; PULSE 95; RESP 18; TEMP 36.8; O2SAT 95
[2023-10-28] MEDS: TETRACAINE/BENZOCAINE/BUTAMBEN 56 GM SPRAY TP (13:34)
[2023-10-28] MEDS: LIDOCAINE 2% VISCOUS SOL 15ML UDC 15 ML PO (13:34)
== END 2023-10-28 13:34 | disposition home or self-care (01) ==
PROVIDERS: Emergency Provider Nurse Practitioner
DX: K04.7 Periapical abscess without sinus (principal); R68.84 Jaw pain
CPT/HCPCS: 99212; 99214; G0463

== ENCOUNTER 2024-01-06 11:13 | Emergency (ER) | payer OTHER, SELFPAY ==
--- NOTE | 2024-01-06 11:21 | XR_ITS ---
FINAL REPORT CLINICAL HISTORY: Right foot pain FINDINGS: RIGHT FOOT Three views demonstrate no acute fracture or dislocation. The joint spaces appear normal. No acute soft tissue abnormality is seen. IMPRESSION: No acute process. Reviewed, Interpreted and Dictated by Jude Desai III, MD Transcribed by Paris Yeboah Authenticated and [facility]
[2024-01-06 11:45] VITALS: BP 123/90; PULSE 83; RESP 20; TEMP 36.8; O2SAT 99; BMI 24.2
--- NOTE | 2024-01-06 11:57 | XR_ITS ---
FINAL REPORT CLINICAL HISTORY: MOPED FELL ON IT COMPARISON: None FINDINGS: RIGHT ANKLE: Three views of the right ankle were obtained. There is a fracture of the inferior aspect of the lateral malleolus. Adjacent lateral soft tissue swelling is present. The joint spaces and mortise are intact. IMPRESSION: Fracture inferior aspect of the lateral malleolus with adjacent lateral soft tissue swelling. Reviewed, Interpreted and Dictated by Jude Desai III, MD Transcribed by Sharifa Jack Authenticated and [facility]
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
[2024-01-06 13:12] VITALS: BP 123/90; PULSE 83; RESP 20; TEMP 36.8; O2SAT 99
== END 2024-01-06 13:48 | disposition home or self-care (01) ==
PROVIDERS: Emergency Provider Nurse Practitioner
DX: S82.64XA Nondisplaced fracture of lateral malleolus of right fibula, initial encounter for closed fracture (principal); W22.8XXA Striking against or struck by other objects, initial encounter; J45.909 Unspecified asthma, uncomplicated; F41.9 Anxiety disorder, unspecified; F32.A Depression, unspecified
CPT/HCPCS: 73610; 73630; 99212; 99214; G0463

== ENCOUNTER 2024-01-20 13:36 | Outpatient (CLI) | payer OTHER, SELFPAY ==
--- NOTE | 2024-01-20 13:41 | XR_ITS ---
FINAL REPORT CLINICAL HISTORY: lateral ankle fracture COMPARISON: 01/06/2024 FINDINGS: AP, oblique, and lateral views of the left ankle were obtained. There is a small avulsion fracture from the tip of the lateral malleolus. No other fracture is identified. The mortise is intact. There is mild lateral soft tissue edema. IMPRESSION: Small avulsion fracture from the tip of the lateral malleolus. Reviewed, Interpreted and Dictated by Dorita Allen MD Transcribed by Paris Yeboah Authenticated and [facility]
--- NOTE | 2024-01-20 13:41 | XR_ITS ---
FINAL REPORT CLINICAL HISTORY: Right foot pain COMPARISON: 01/06/2024 FINDINGS: AP, oblique and lateral views of the right foot were obtained. There is no prior exam for comparison. There is no acute fracture or dislocation. The joint spaces are preserved. Soft tissues are normal. IMPRESSION: No acute osseous abnormality of the right foot. Reviewed, Interpreted and Dictated by Dorita Allen MD Transcribed by Paris Yeboah Authenticated and [facility]
== END 2024-01-20 23:59 ==
LOC: RAD 13:37
PROVIDERS: Visit Provider Nurse Practitioner
DX: S82.64XA Nondisplaced fracture of lateral malleolus of right fibula, initial encounter for closed fracture (principal)
CPT/HCPCS: 73610; 73630

== ENCOUNTER 2024-01-26 17:52 | Emergency (ER) | payer OTHER, SELFPAY ==
[2024-01-26] VITALS (7 sets, daily range): BP systolic 112–178; BP diastolic 64–152; PULSE 73–110; RESP 15–20; TEMP 36.7–36.8; O2SAT 97–99; BMI 24.3
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
[2024-01-26] MEDS: SODIUM CHLORIDE 0.9% 10ML SYR (RAD ONLY) 10 ML IV (19:08)
[2024-01-26] MEDS: IOPAMIDOL-370 (76%);100ML BOTTLE 100 ML IV (19:08)
[2024-01-26] MEDS: 0.9 % SODIUM CHLORIDE 50 ML VIAL 40 ML IV (19:08)
[2024-01-26 19:20] LABS: Basophils # 0.1 K/mm3 (0-0.2); Basophils % 1.1 % (0.1-2.0); Eosinophils # 0.2 K/mm3 (0.0-0.4); Hematocrit 47.4 % (42.0-52.0); Hemoglobin 15.9 g/dL (14.1-18.0); Lymphocytes # 3.3 K/mm3 (0.7-4.5); Lymphocytes % 26.7 % (10-50); Mean Corpuscular HGB Conc 33.5 g/dL (31.8-35.4); Mean Corpuscular Volume 92.3 fl (80-94); Mean Platelet Volume 7.6 fl (7.4-10.4); Monocytes # 0.6 K/mm3 (0.1-1.0); Monocytes % 4.6 % (1.7-9.3); Neutrophils % 65.5 % (37.0-80.0); Platelet Count 360 K/mm3 (142-424); Red Blood Count 5.13 M/mm3 (4.60-6.20); Red Cell Distribution Width 12.9 % (11.5-17.5); White Blood Count 12.2 K/mm3 (4.8-10.8)
[2024-01-26 19:23] LABS: Chloride 108 mmol/L (98-107); Sodium 140 mmol/L (136-145)
[2024-01-26 19:25] LABS: Alanine Aminotransferase 109 U/L (12-78); Aspartate Amino Transferase 78 U/L (17-59); Blood Urea Nitrogen 16 mg/dl (9-20); Creatinine Clearance Estimated 105 mL/min (50-200); Estimated Glomerular Filt Rate 76 ml/min (>60); GFR (African American) 92 ML/MIN (>60)
[2024-01-26 19:26] LABS: Albumin Level 4.6 g/dl (3.5-5.0); Albumin/Globulin Ratio 1.6 (1.1-1.8); Alkaline Phosphatase 101 U/L (38-126); Bilirubin,Total 1.2 mg/dl (0.2-1.3); Calcium 9.4 mg/dl (8.4-10.2); Carbon Dioxide 20 mmol/L (22.0-30.0); Globulin 2.8 g/dL (1.3-3.2); Glucose 104 mg/dl (74-100); Total Protein,Serum 7.4 g/dl (6.3-8.2)
[2024-01-26] MEDS: ONDANSETRON 4MG/2ML VIAL 4 MG IV (19:33)
[2024-01-26] MEDS: MORPHINE 4MG/ML SYRINGE 4 MG IV (19:34)
[2024-01-26] MEDS: TET/DIPHTH/PERT-ADULT 0.5ML SYRINGE 0.5 ML IM (19:35)
[2024-01-26] MEDS: LACTATED RINGERS 1000ML 1,000 ML 999 ML IV (19:37)
--- NOTE | 2024-01-26 19:59 | PC.NURSE ---
Called [facility] about transfer of pt per Dr Salazar's request. [facility] to call back. CR
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
[2024-01-26] MEDS: BACITRACIN ZINC OINT 30GM TUBE TP (20:26)
[2024-01-26] MEDS: CLINDAMYCIN PHOSPHATE/D5W 600 MG/50 ML PIGGYBACK 100 MG IV (20:27)
--- NOTE | 2024-01-26 21:31 | PC.NURSE ---
Report given to [facility].
== END 2024-01-26 22:03 | disposition short-term general hospital (02) ==
PROVIDERS: Emergency Provider Emergency Medicine
DX: S02.40CA Maxillary fracture, right side, initial encounter for closed fracture (principal); S02.31XA Fracture of orbital floor, right side, initial encounter for closed fracture; S02.841A Fracture of lateral orbital wall, right side, initial encounter for closed fracture; S01.111A Laceration without foreign body of right eyelid and periocular area, initial encounter; S63.072A Subluxation of distal end of left ulna, initial encounter; V28.49XA Other motorcycle driver injured in noncollision transport accident in traffic accident, initial encounter; Y92.410 Unspecified street and highway as the place of occurrence of the external cause; F17.210 Nicotine dependence, cigarettes, uncomplicated; Z23 Encounter for immunization
CPT/HCPCS: 70450; 70486; 71045; 71275; 72125; 72128; 72131; 73070; 73090; 73110; 73130; 74174; 80053; 85025; 90471; 90715; 96361; 96365; 96375; 99285; J2405; Q9967

== ENCOUNTER 2025-08-07 07:27 | Emergency (ER) | payer SELFPAY ==
[2025-08-07] VITALS (10 sets, daily range): BP systolic 115–139; BP diastolic 59–97; PULSE 100–144; RESP 16–18; TEMP 36.9–37.7; O2SAT 95–100; BMI 29.6
--- OUTSIDE RECORDS SUMMARY | 2025-08-07 07:34 | XMS_ITS | Clinical Summary ---
Author Organization [facility] Address [address] [place] [address] Care Team Providers Care Fire Chief Deputy Name Role Phone Pcp, No Primary Care Provider Unavailabl e Allergies Active Allergy Reactions Criticality Noted Date Comments Amoxicillin Anaphylaxis,Rash High 05/11/2022 Medications predniSONE (Deltasone) 20 MG tablet 05/06/2023 Active HYDROcodone-acetam inophen ([place]) 5-325 MG tablet 08/20/2023 Act slade escitalopram (Lexapro) 10 MG tablet 07/31/2023 Active Active Problems Problem Noted Date Diagnosed Date Other obsessive-compulsive disorder 12/03/2023 Jaw pain 10/28/2023 Periapical abscess without sinus 10/28/2023 Unspecified asthma, uncomplicated 07/04/2023 Mild intermittent asthma with (acute) exacerbati on 05/04/2023 Shortness of breath 05/04/2023 Regular astigmatism, bilateral 03/28/2023 Resolved Problems Problem Noted Date Diagnosed Date Resolved Date Bronchitis, not specified as acute or chronic 05/04/20 23 07/18/2025 Social History Tobacco Use Types Packs/Day Years Used Date Smoking Tobacco: Never Smokeless Tobacco: Never Tobacco Cessation:Counseling Given: Not Answered Alcohol Use Standard Drinks/Week Comments Never 0 (1 standard drink = 0.6 oz pur e alcohol) Sex and Gender Information Value Date Recorded Sex Assigned at Male 01/27/2024 3:23 AM EDT Legal Sex Male 8:00 PM EDT Gender Identity Male 01/27/2024 3:23 AM EDT Sexual Orientation Not on file Last Filed Vital Signs Vital Sign Reading Time Taken Comments Blood Pressure 148/91 02/04/2024 1:37 PM EDT Pulse 85 02/04/2024 1:37 PM EDT Temperature 36.7 C (98.1 F) 01/27/2024 4:09 AM EDT Respiratory Rate 13 01/27/2024 2:57 AM EDT Oxygen Saturation 98% 02/04/2024 1:37 PM EDT Inhaled Oxygen Concentration - - Weight 78.4 kg (172 lb 12.8 oz) 02/04/2024 1:37 PM EDT Height 177.8 cm (5' 10 ) 02/04/2024 1:37 PM EDT Body Mass Index 24.79 02/04/2024 1:37 PM EDT Plan of Treatment Health Maintenance Due Date Last Done Comments [facility]-Depression Screening 2001 [facility]-HIV Screening 2001 [facility]-Hepatitis C Screening 2001 [facility]-/Child/Adol SDOH Screenings 2001 [facility]-[id number]-45 Vaccine (#1) 2006 HPV Vaccines (1 - Male 3-dose series) 2016 [facility]-Hepatitis A Vaccines (2 of 2 - 2-dose series) 02/19/2019 08/21/2018 [facility]- SDOH Screenings 2019 [facility]-Adult SDOH Screenings 2019 [facility]-Pneumococcal Vaccine: Pediatrics (0 to 5 Years) and At-Risk Patients (6 to 49 Years) (1 of 2 - PCV) 2020 [facility]-Zoster Vaccines (1 of 2) 2020 03/12/2013, 10/19/2002 [facility]-Influenza Vaccine (#1) 2025 [facility]-DTaP,Tdap,and Td Vaccines (8 - Td or Tdap) 01/25/2034 01/26/2024, 03/12/2013, 09/28/2005, Additional history exists [facility]-Hepatitis B Vaccines Completed 002, 2001, 2001 [facility]-HIB Vaccines Completed 01/01/2003, , 2001 [facility]-IPV Vaccines Completed 09/28/2005, , 01/22/2002, Additional history exists [facility]-Varicella Vaccines Completed 03/12/2013, 2001 [facility]-Rotavirus Vaccines Aged Out No lo nger eligible based on patient's age to complete this topic Insurance [employer] Care Teams Fire Chief Deputy Relationship Specialty Start Date End Date Pcp, No [address] [place] [address] PCP - General Family Medicine 01/26/24
--- NOTE | 2025-08-07 07:39 | ECG_ITS ---
APPROVED REPORT Exam: Resting ECG HR:132 bpm ECG Measurements Heart Rate 132 AXES VT 123 P 82 QRSd 71 QRS 45 QT 263 T 82 QTc 341 Conclusion Sinus tachycardia without acute ST or T wave changes concerning for ischemia Electronically signed by : Renee Pendleton, 08/09/2025 00:54:29
--- NOTE | 2025-08-07 07:44 | XR_ITS ---
PROCEDURE INFORMATION: Exam: XR Chest Exam date and time: 08/07/2025 8:01 AM Age: 24 years old Clinical indication: Cough; Additional info: Shortness of breath TECHNIQUE: Imaging protocol: Radiologic exam of the chest. Views: 2 views. COMPARISON: CR XR CHEST PORTABLE 01/26/2024 7:03 PM FINDINGS: Lungs: The lungs are clear. Pleural spaces: No pneumothorax or pleural effusion. Heart/Mediastinum: Cardiomediastinal silhouette is unremarkable. Bones/joints: No acute osseous or soft tissue abnormality. IMPRESSION: No acute cardiopulmonary abnormality.
--- NOTE | 2025-08-07 08:01 | ED_ITS ---
Discharge Plan Disposition Patient Disposition: Home, Self-Care Condition: Good Prescriptions Prescriptions: New cefdinir 300 mg capsule 300 mg PO BID 7 Days Qty: 14 0RF azithromycin 250 mg tablet 250 mg PO DAILY 4 Days Qty: 4 0RF Rx Instructions: start on day 2 of therapy No Action escitalopram oxalate 10 mg tablet 15 mg PO DAILY Referrals Follow up/Referrals: Provider,Referral, MD [Primary Care Provider, Medical] - See instructions Activity Restrictions/Add. Instructions Additional Instructions/Restrictions: Take the antibiotics as prescribed. Return to the emergency department if you have any acute worsening shortness of breath, fevers for multiple days, if you develop any neurologic symptoms such as numbness weakness severe headaches or if you have any other acute concerns. Return to the emergency department for any acute or worsening symptoms. Clinical Impressions Clinical Impression: Acute otitis media, right, Atypical pneumonia Instructions Patient Instructions: Cough Print Language Print Language: Uzbek Discharge ED Provider: Renee Pendleton Adult HPI General Chief complaint: Cough Stated complaint: body aches, fever, head aches. Time Seen by Provider: 08/07/25 07:37 Mode of Arrival: Ambulatory Source of Information: Patient Description of Symptoms (Recalled from ER Triage Doc. by RN): pt presents to the ED with coughing, congestion, vomiting and diarrhea. pt reports that he started having coughing and congestion on Saturday and has had low grade fevers. pt states that he woke up this morning having trouble breathing from the cough and congestion. Denies chest pain. History of Present Illness HPI narrative: Patient is an otherwise healthy 24-year-old male with no significant past medical history who presented to the emergency department with 4 days of upper respiratory symptoms. Patient states that she has had a cough congestion has been coughing up phlegm. Patient states that he feels short of breath but is not having any chest pain. Patient states that he has had a couple episodes of nonbloody diarrhea. Had 1 episode of vomiting this morning. Has had low-grade fevers less than 100.4. Patient denies any abdominal pain. Patient was reporting some intermittent headaches but does not currently have a headache. Patient denies any neck pain. Patient denies any vision changes. Patient denies any numbness weakness or other neurologic symptoms. Patient has had no difficulties ambulating. Patient denies any urinary symptoms. Patient denies any recent surgeries. Patient denies any recent long travels no hemoptysis. No history of blood clots. Previous history of tonsillectomy and adenoidectomy. History of asthma as a kid but does not take any daily medications for this. Related Data Home Medications ?Medication ?Instructions ?Recorded ?Confirmed escitalopram oxalate 10 mg tablet 15 mg PO DAILY . 05/1901/21/24 Previous Rx's ?Medication ?Instructions ?Recorded azithromycin 250 mg tablet 250 mg PO DAILY 4 days #4 t abs 08/07/25 cefdinir 300 mg capsule 300 mg PO BID 7 days #14 cap s 08/07/25 Allergies Allergy/AdvReac Type Severity Reaction Status Date / Time amoxicillin (AMOXICILLIN) Allergy Unknown Verified 01/21/24 10:45 [facility] Disclaimer: The information contained in this section may have been updated after the patient was seen, as this information can be updated by other users. Medical History Asthma Anxiety and depression Family History Other No significant family history Social History Smoking Status: Current every day smoker alcohol intake: never current occupational status: employed Travel in the last 8 weeks?: None housing: house Have you lived/traveled outside [place] in past 30 days?: No Contact w/someone who lives/traveled outside [place] past 30 days?: No Exposure to someone with infectious disease in past 14 days?: No Do you have a fever (greater than 100.4 F or 38 C)?: No Have you tested positive for COVID-19?: No Exposed to someone with COVID-19 in past 14 days?: No Do you have a sore throat?: No Do you have a cough?: No Do you have any weakness?: No Do you have any diarrhea?: No Are you experiencing any unusual bleeding?: No Do you have any muscle aches/pain?: No Do you have any abdominal pain?: No Are you experiencing loss of taste or smell?: No Other Medical History Have you received the Flu Vaccine for this season: No Have you received the Pneumonia Vaccine: No ROS Obtained: Yes All systems reviewed & no additional complaints except as documented and Yes Systems reviewed as appropriate & no additional complaints except as documented Physical Exam General General appearance: alert and in no apparent distress Head Head exam: atraumatic, normocephalic and normal inspection Eye Eye exam: Present normal appearance, PERRL and EOMI; Absent scleral icterus ENT ENT exam: Present normal exam, normal external ear exam and other (Right otitis media) Neck Neck exam: Present normal inspection and full ROM Chest Chest inspection: Present normal inspection and symmetric chest wall rise Respiratory Respiratory exam: Present normal lung sounds bilaterally and wheezes (intermittent expiratory wheezing, right. Diminished BS on the left. ); Absent respiratory distress Cardiovascular Cardiovascular exam: Present regular rate, normal rhythm and normal heart sounds Abdominal Exam Abdominal exam: Present soft and distention; Absent tenderness, guarding or rebound Extremities Exam Extremities exam: Present normal inspection and full ROM Back Exam Back exam: Present normal inspection and full ROM Neurological Exam Neurological exam: Present alert, oriented X3, normal gait and reflexes normal; Absent motor sensory deficit Psychiatric Psychiatric exam: Present normal affect and normal mood Skin Skin exam: Present warm and dry Medical Decision Making Medical Records Medical records reviewed: Yes I reviewed the patient's medical records. Screening: Per USPSTF and CDC recommendations, given the prevalence of disease in our region, it is our hospital?s policy to screen for HIV and viral Hepatitis for all patients aged 18 and over and those with ongoing risk factors. Herminio Inquiry Pt receiving controlled substance: No Vital Signs: 08/07/25 07:31 08/07/25 07:31 08/07/25 07:32 Temperature 100 F H 100 F H Temperature Source Oral Oral Pulse Rate 138 H 134 H Pulse Rate [Right] 138 H Respiratory Rate 18 18 Blood Pressure 133/97 H 133/97 H Blood Pressure [Right Arm] 133/97 H Blood Pressure Mean [Right Arm] 109 Blood Pressure Source Automatic Cuff Blood Pressure Source [Right Arm] Automatic Cuff Blood Pressure Position Supine Blood Pressure Position [Right Arm] Supine 02 Sat by Pulse Oximetry 95 95 95 Oxygen Delivery Method Room Air Room Air 08/07/25 08:00 08/07/25 08:30 08/07/25 09:00 Temperature Temperature Source Pulse Rate 107 H 115 H 137 H Pulse Rate [Right] Respiratory Rate Blood Pressure 127/78 133/91 H 139/83 Blood Pressure [Right Arm] Blood Pressure Mean [Right Arm] Blood Pressure Source Blood Pressure Source [Right Arm] Blood Pressure Position Blood Pressure Position [Right Arm] 02 Sat by Pulse Oximetry 95 97 100 Oxygen Delivery Method Room Air Room Air 08/07/25 09:31 08/07/25 10:01 08/07/25 10:30 Temperature Temperature Source Pulse Rate 139 H 144 H 122 H Pulse Rate [Right] Respiratory Rate Blood Pressure 115/59 L 118/71 137/75 Blood Pressure [Right Arm] Blood Pressure Mean [Right Arm] Blood Pressure Source Blood Pressure Source [Right Arm] Blood Pressure Position Blood Pressure Position [Right Arm] 02 Sat by Pulse Oximetry 95 96 97 Oxygen Delivery Method Room Air Room Air Room Air 08/07/25 12:00 08/07/25 12:07 Temperature 98.5 F Temperature Source Oral Pulse Rate 115 H 100 H Pulse Rate [Right] Respiratory Rate 16 17 Blood Pressure 128/86 128/86 Blood Pressure [Right Arm] Blood Pressure Mean [Right Arm] Blood Pressure Source Automatic Cuff Blood Pressure Source [Right Arm] Blood Pressure Position Supine Blood Pressure Position [Right Arm] 02 Sat by Pulse Oximetry 96 Oxygen Delivery Method Room Air Room Air Lab Data Lab results reviewed: Yes I reviewed the patient's lab results. Lab Results 08/07/25 08:00: WBC 14.5 H, RBC 5.00, Hgb 15.6, Hct 44.5, MCV 89.0, MCH 31.2, MCHC 35.1, RDW 11.2 L, Plt Count 314, MPV 9.3, Neut % (Auto) 83.6 H, Lymph % (Auto) 7.6 L, [place] % (Auto) 7.0, Eos % (Auto) 1.2, Baso % (Auto) 0.3, Neut # (Auto) 12.2 H, Lymph # (Auto) 1.1, [place] # (Auto) 1.0, Eos # (Auto) 0.2, Baso # (Auto) 0.1, D-Dimer 0.90 H, Sodium 138, Potassium 4.1, Chloride 101, Carbon Dioxide 23, Anion Gap 18.1 H, BUN 9, Creatinine 1.10, Estimated Creat Clear 109, Estimated GFR 83, Est GFR ( Amer) 100, Glucose 110 H, Calcium 9.7, Magnesium 1.7, Total Bilirubin 2.4 H, AST 48, ALT 54, Alkaline Phosphatase 116, Troponin I < 0.01, Total Protein 7.5, Albumin 4.5, Globulin 3.0, Albumin/Globulin Ratio 1.5, Lipase 32, SARS-CoV-2 (PCR) Not detected, HCV Ab LAURA w/Rflx PCR Qn Negative, HIV Ag/Ab Combo Qual Negative, Influenza Type A (PCR) Not detected, Influenza Type B (PCR) Not detected, RSV (PCR) Not detected, Rhinovirus (PCR) Not detected 08/07/25 11:00: Troponin I < 0.01 08/07/25 08:00 08/07/25 08:00 Orders (Tests/Meds): ED MEDICATIONS Discontinued Medications Generic Name Dose Route Start Last Admin Trade Name Freq PRN Reason Stop Dose Admin Acetaminophen 1,000 mg 08/07/25 11:21 08/07/25 11:51 Acetaminophen 500mg Tab PO 08/07/25 11:22 1,000 mg ONCE ONE Administration Albuterol/Ipratropium 9 ml 08/07/25 08:16 08/07/25 08:35 Ipratropium/Albuterol 3 Ml Neb IH 08/07/25 08:17 9 ml ONCE ONE Administration Azithromycin 500 mg 08/07/25 10:49 08/07/25 11:51 Azithromycin 250mg Tablet PO 08/07/25 10:50 500 mg ONCE ONE Administration Lactated Ringer's 1,000 mls @ 999 mls/hr 08/07/25 08:21 08/07/25 09:48 Lactated Ringer's 1000 Ml Bag IV 08/07/25 09:21 Infused .Q1H1M ONE Infusion Iopamidol 75 ml 08/07/25 10:00 08/07/25 10:02 Iopamidol-370 (76%);100ml Bottle IV 08/07/25 10:01 75 ml ONCE ONE Administration Ondansetron HCl 4 mg 08/07/25 07:44 08/07/25 08:34 Ondansetron 4mg/2ml Vial IV 08/07/25 07:45 4 mg ONCE ONE Administration Sodium Chloride 10 ml 08/07/25 10:00 08/07/25 10:02 Sodium Chloride 0.9% 10ml Syr (Rad Only) IV 09/06/25 09:59 10 ml NEEDED PRN Administration Maintain IV Site Sodium Chloride 50 ml 08/07/25 10:00 08/07/25 10:02 0.9 % Sodium Chloride 50 Ml Vial IV 08/07/25 10:01 50 ml ONCE ONE Administration ORDERS Category Date Time Status CT angio chest PE protocol Stat Cat Scan 08/07/25 09:09 Completed CXR 2 view (NOT portable) [XR chest 2V] Stat Exams 08/07/25 07:44 Completed CBC w/Auto Diff [Complete Blood Count Auto Diff] Stat Lab 08/07/25 08:00 Completed CMP [Comprehensive Metabolic Panel] Stat Lab 08/07/25 08:00 Completed D-Dimer Stat Lab 08/07/25 08:00 Completed HIV Combo Stat Lab 08/07/25 08:00 Completed Hepatitis C Ab Qual. W/ RFX Stat Lab 08/07/25 08:00 Completed Lipase Stat Lab 08/07/25 08:00 Completed MAG [Magnesium] Stat Lab 08/07/25 08:00 Completed Mini Respiratory Panel Stat Lab 08/07/25 08:00 Completed Trop I [Troponin I] Stat Lab 08/07/25 08:00 Completed Troponin I Q3H Lab 08/07/25 11:00 Completed Blood Culture Stat Micro 08/07/25 11:45 Received Medical Decision Narrative: Patient is an otherwise healthy 24 male who presented to the emergency department with 4 days of upper respiratory symptoms and shortness of breath. On arrival, patient was tachycardic to the 130s, vital signs were otherwise unremarkable. Differential includes but not limited to: Pneumonia, dehydration, sepsis, pulmonary embolism, electrolyte abnormalities, viral upper respiratory infection, asthma exacerbation, amongst others. Patient's labs were reviewed and interpreted by myself: CBC showed mild leukocytosis of 14, hemoglobin was stable. D-dimer was elevated at 0.90. Anion gap elevated at 18. Glucose normal. Bilirubin mildly elevated at 2.4 however previously elevated in the past. LFTs normal. Lipase normal. X-ray was reviewed and interpreted by myself and showed no acute focal consolidation, pneumothorax, pleural effusion or other acute cardiopulmonary process. Patient was given IV fluids, DuoNebs were ordered given mild expiratory wheezing on exam. Patient's elevated D-dimer with significant tachycardia, CT scan was ordered to further evaluate for pulmonary embolism. Patient was given a second liter of IV fluids in the emergency department continuous tachycardia. Patient's chest x-ray was reviewed and interpreted by myself and showed no acute focal consolidation, pneumothorax pleural effusion but did show concern for possible atypical type pneumonia. CT PE was reviewed and interpreted by myself and showed no acute pulmonary embolism. Patient was given a dose of azithromycin in the emergency department. Patient was observed and patient's heart rate significantly improved to 100. Patient had a right otitis media clinically on exam. At this time, patient was sent home with cefdinir and azithromycin for atypical pneumonia as well as otitis media. Patient was given strict return precautions and patient was otherwise discharged home in stable condition. Given patient's initial tachycardia, blood cultures were sent. Patient has otherwise been afebrile here. Critical Care Critical Care Time Critical Care Time: No
[2025-08-07 08:09] LABS: Coronavirus 19, PCR Not Detected (NotDetected); Influenza A, PCR Not Detected (NotDetected); Influenza B, PCR Not Detected (NotDetected)
[2025-08-07 08:11] LABS: Hematocrit 44.5 % (42.0-52.0); Hemoglobin 15.6 g/dL (14.1-18.0); Immature Granulocytes % 0.3 %; Mean Corpuscular HGB Conc 35.1 g/dL (31.8-35.4); Mean Corpuscular Hemoglobin 31.2 pg (27.0-31.2); Mean Corpuscular Volume 89.0 fl (80-94); Nucleated Red Blood Cells % 0 %; Platelet Count 314 K/mm3 (142-424); Red Blood Count 5.00 M/mm3 (4.60-6.20); Red Cell Distribution Width-SD 35.9 fL; White Blood Count 14.5 K/mm3 (4.8-10.8)
[2025-08-07] MEDS: LACTATED RINGERS 1000ML 1,000 ML 999 ML IV (08:34)
[2025-08-07] MEDS: ONDANSETRON 4MG/2ML VIAL 4 MG IV (08:34)
[2025-08-07] MEDS: IPRATROPIUM/ALBUTEROL 3 ML NEB 9 ML IH (08:35)
[2025-08-07 08:55] LABS: Lipase 32 U/L (23-300)
[2025-08-07 08:57] LABS: Alanine Aminotransferase 54 U/L (12-78); Albumin Level 4.5 g/dl (3.5-5.0); Albumin/Globulin Ratio 1.5 (1.1-1.8); Alkaline Phosphatase 116 U/L (38-126); Anion Gap 18.1 mEq/L (5-15); Aspartate Amino Transferase 48 U/L (17-59); Bilirubin,Total 2.4 mg/dl (0.2-1.3); Blood Urea Nitrogen 9 mg/dl (9-20); Calcium 9.7 mg/dl (8.4-10.2); Carbon Dioxide 23 mmol/L (22.0-30.0); Chloride 101 mmol/L (98-107); Creatinine Clearance Estimated 109 mL/min (50-200); Creatinine,Serum 1.10 mg/dl (0.66-1.25); Estimated Glomerular Filt Rate 83 ml/min (>60); GFR (African American) 100 ML/MIN (>60); Globulin 3.0 g/dL (1.3-3.2); Glucose 110 mg/dl (74-100); Magnesium 1.7 mg/dl (1.6-2.3); Potassium 4.1 mmoL/L (3.5-5.1); Sodium 138 mmol/L (136-145); Total Protein,Serum 7.5 g/dl (6.3-8.2)
[2025-08-07 09:01] LABS: D-Dimer 0.90 ug/mL (0.0-0.5)
--- NOTE | 2025-08-07 09:09 | CT_ITS ---
PROCEDURE INFORMATION: Exam: CTA Chest With Contrast Exam date and time: 08/07/2025 9:57 AM Age: 24 years old Clinical indication: Abnormal findings; Abnormal diagnostic tests; Elevated d-dimer; Additional info: Elevated d-dimer, tachycardia TECHNIQUE: Imaging protocol: Computed tomographic angiography of the chest with contrast. Exam focused on the arteries. 3D rendering (Not supervised by radiologist): MIP and/or 3D reconstructed images were created by the technologist. Radiation optimization: All CT scans at this facility use at least one of these dose optimization techniques: automated exposure control; mA and/or kV adjustment per patient size (includes targeted exams where dose is matched to clinical indication); or iterative reconstruction. Contrast material: ISOVUE 370; Contrast volume: 70 ml; Contrast route: INTRAVENOUS (IV); COMPARISON: CT ANGIO CHEST 01/26/2024 7:00 PM FINDINGS: Pulmonary arteries: No PE. No evidence of cardiac strain. Aorta: Unremarkable. No aortic aneurysm. No aortic dissection. Lungs: Multiple scattered tree-in-bud opacities in the bilateral lungs, most prominently right mid lung and left lower lobe. Pleural spaces: Unremarkable. No pneumothorax. No pleural effusion. Heart: See Pulmonary arteries finding. Heart RV/LV ratio: RV/LV ratio is 1/1. Normal heart size. No pericardial fluid. Lymph nodes: Unremarkable. No enlarged lymph nodes. Bones/joints: Unremarkable. No acute fracture. Soft tissues: Unremarkable. IMPRESSION: 1. No PE. No evidence of cardiac strain. 2. Multiple scattered tree-in-bud opacities in the bilateral lungs, most prominently right mid lung and left lower lobe. Concerning for infectious (including atypical) versus inflammatory etiology. Recommend imaging follow-up to resolution.
[2025-08-07 09:22] LABS: Troponin I < 0.01 ng/ml (0.00-0.034)
[2025-08-07 09:44] LABS: Hepatitis C Ab Qual. W/ RFX NEGATIVE (Negative)
[2025-08-07] MEDS: 0.9 % SODIUM CHLORIDE 50 ML VIAL IV (10:02)
[2025-08-07] MEDS: SODIUM CHLORIDE 0.9% 10ML SYR (RAD ONLY) 10 ML IV (10:02)
[2025-08-07] MEDS: IOPAMIDOL-370 (76%);100ML BOTTLE 75 ML IV (10:02)
--- NOTE | 2025-08-07 11:18 | PC.NURSE ---
Called lab for blood cultures.
[2025-08-07] MEDS: AZITHROMYCIN 250MG TABLET 500 MG PO (11:51)
[2025-08-07] MEDS: ACETAMINOPHEN 500MG TAB 1000 MG PO (11:51)
--- NOTE | 2025-08-07 11:57 | ECG_ITS ---
APPROVED REPORT Exam: Resting ECG HR:101 bpm ECG Measurements Heart Rate 101 AXES CO 116 P 67 QRSd 73 QRS 28 QT 300 T 73 QTc 358 Conclusion Sinus tachycardia at [address] or T wave changes concerning for ischemia Electronically signed by : Renee Pendleton, 08/09/2025 00:59:40
[2025-08-07 12:08] LABS: Troponin I < 0.01 ng/ml (0.00-0.034)
== END 2025-08-07 12:19 | disposition home or self-care (01) ==
PROVIDERS: Emergency Provider Student in an Organized Health Care Education/Training Program
DX: J18.9 Pneumonia, unspecified organism (principal); R00.0 Tachycardia, unspecified; H66.91 Otitis media, unspecified, right ear; R11.2 Nausea with vomiting, unspecified; R79.89 Other specified abnormal findings of blood chemistry; R50.9 Fever, unspecified; F17.210 Nicotine dependence, cigarettes, uncomplicated
CPT/HCPCS: 71046; 71275; 80053; 83690; 83735; 84484; 85025; 85378; 86803; 87040; 87389; 87631; 93005; 96361; 96374; 99285; J2405; J7120; Q9967